=== PATIENT | female | born 1990 | race Caucasian/White ===

== ENCOUNTER → 2017-11-19 | Outpatient (CLI) | payer OTHER ==
--- NOTE | 2017-11-19 16:51 | Diagnostic Imaging Report ---
INDICATION: Right foot pain. AP, oblique, and lateral views of the right foot are obtained. There is mild plantar calcaneal spurring. There is no acute fracture or acute bony abnormality. Joint spaces are unremarkable. IMPRESSION: Negative right foot. Dictated by: Dictated on workstation # [id number]
--- NOTE | 2017-11-19 16:52 | Diagnostic Imaging Report ---
INDICATION: Injury to right ankle. AP, oblique, and lateral views of the right ankle are obtained. No fracture or acute bony abnormality is seen. IMPRESSION: Negative right ankle. Dictated by: Dictated on workstation # [id number]
== END ==
LOC: RAD 16:13
PROVIDERS: ATTEND Nurse Practitioner Family
DX: S93.401A Sprain of unspecified ligament of right ankle, initial encounter (principal)
CPT/HCPCS: 73610; 73630

== ENCOUNTER → 2017-11-23 | Outpatient (CLI) | payer OTHER ==
--- NOTE | 2017-11-23 15:21 | Diagnostic Imaging Report ---
INDICATION: Injury to the right foot with pain and swelling. TIME OF EXAM: 2:47 PM Three views of the right foot were obtained. FINDINGS: Metatarsals are intact. The phalanges are intact. Midfoot and hindfoot are unremarkable apart from a large plantar calcaneal spur. No fractures are seen. IMPRESSION: No acute bony abnormality is detected. Dictated by: Dictated on workstation # [id number]
== END ==
LOC: RAD 14:03
PROVIDERS: ATTEND Family Medicine
DX: S99.921A Unspecified injury of right foot, initial encounter (principal)
CPT/HCPCS: 73630

== ENCOUNTER 2018-01-10 23:00 | Emergency (ER) | payer OTHER ==
[~2018-01-10] VITALS: Ht 180.3 cm; Wt 113.4 kg
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
[2018-01-11] MEDS ORDERED: ORPHENADRINE 60 MG/2 ML (NORFLEX) AMP IM ONE (00:15)
[2018-01-11] MEDS ORDERED: PRD20T PO (00:15)
[2018-01-11] MEDS ORDERED: predniSONE 20 MG TAB PO ONE (00:15)
[2018-01-11 01:15] LABS: BASOPHILS % (AUTO) 0 % (0-10); EOSINOPHILS # (AUTO) 0.2 10^3/uL (0.0-0.3); EOSINOPHILS % (AUTO) 3 % (0-10); HEMATOCRIT 35 % (35-52); HEMOGLOBIN 12.5 G/DL (11.5-16.0); LYMPHOCYTES # (AUTO) 2.8 X 10^3 (1.0-4.0); LYMPHOCYTES % (AUTO) 33 % (12-44); MEAN CORPUSCULAR HEMOGLOBIN 32 PG (25-34); MEAN CORPUSCULAR HGB CONC 36 G/DL (32-36); MEAN CORPUSCULAR VOLUME 90 FL (80-99); MEAN PLATELET VOLUME 11.4 FL (7.4-10.4); MONOCYTES # (AUTO) 0.9 X 10^3 (0.0-1.0); MONOCYTES % (AUTO) 10 % (0-12); NEUTROPHILS # (AUTO) 4.6 X 10^3 (1.8-7.8); NEUTROPHILS % (AUTO) 54 % (42-75); PLATELET COUNT 201 10^3/uL (130-400); RED BLOOD COUNT 3.92 10^6/uL (4.35-5.85); WHITE BLOOD COUNT 8.5 10^3/uL (4.3-11.0)
[2018-01-11 01:35] LABS: ALANINE AMINOTRANSFERASE 22 U/L (0-55); ALKALINE PHOSPHATASE 101 U/L (40-136); BILIRUBIN,TOTAL 0.3 MG/DL (0.1-1.0); BUN/CREATININE RATIO 17; CALCIUM 9.6 MG/DL (8.5-10.1); CARBON DIOXIDE 25 MMOL/L (21-32); CHLORIDE 106 MMOL/L (98-107); CREATININE SERUM 0.88 MG/DL (0.60-1.30); GFR ESTIMATED > 60; GLUCOSE 109 MG/DL (70-105); POTASSIUM 4.1 MMOL/L (3.6-5.0); SODIUM 140 MMOL/L (135-145); TOTAL PROTEIN 6.7 GM/DL (6.4-8.2)
[2018-01-11 03:59] VITALS: BP 131/81
== END 2018-01-11 01:52 | disposition home or self-care (01) ==
LOC: EDUNIT# 23:00 → ER 23:01
DX: M54.9 Dorsalgia, unspecified (principal); R51 Headache; G25.81 Restless legs syndrome; Z87.59 Personal history of other complications of pregnancy, childbirth and the puerperium; Z97.5 Presence of (intrauterine) contraceptive device
CPT/HCPCS: 36415; 80053; 85025; 86141; 96372; 99284

== ENCOUNTER 2018-01-20 13:02 | Outpatient (RCR) | payer OTHER ==
[~2018-01-20 13:02] MED LIST: PRD20T PO
== END 2018-01-20 14:22 | disposition home or self-care (01) ==
PROVIDERS: ATTEND Family Medicine
DX: M54.5 Low back pain (principal); M25.551 Pain in right hip

== ENCOUNTER 2018-05-11 21:54 | Emergency (ER) | payer MEDICAID, OTHER ==
[~2018-05-11] VITALS: Ht 180.3 cm; Wt 122.5 kg
[2018-05-11] MEDS ORDERED: ONDANSETRON 4 MG (ZOFRAN) ORAL DISSOLVE TAB PO ONE (23:00)
[2018-05-11] MEDS ORDERED: ORPHENADRINE 60 MG/2 ML (NORFLEX) AMP IM ONE (23:00)
[2018-05-11] MEDS ORDERED: diphenhydrAMINE 50 MG/ML INJ (BENADRYL) IM ONE (23:00)
[2018-05-11] MEDS ORDERED: KETOROLAC 60 MG/2 ML VIAL IM ONE (23:00)
--- NOTE | 2018-05-11 23:11 | ED Headache ---
General Chief Complaint: Head/Cervical Problems Stated Complaint: MIGRANE Nursing Triage Note: PATIENT STATES THAT SHE HAS HAD A MIGRAINE FOR THE PAST TWO DAYS. SHE VISITED [facility] YESTERDAY AND RECEIVED ZOFRAN AND IMITREX, WHICH HAS HELPED A LITTLE. SHE COMPLAINS OF RINGING IN THE EARS, NAUSEA, BLURRY VISION. TEN DAYS AGO SHE PULLED A MUSCLE IN THE RIGHT SIDE OF HER NECK AND WAS GIVEN PREDNISONE AND FLEXERIL. Nursing Sepsis Screen: No Definite Risk Allergies and Home Medications Allergies Coded Allergies: No Known Drug Allergies (Unverified , 07/19/15) Home Medications Butalb/Acetaminophen/Caffeine 1 Each Capsule, 1-2 EACH PO Q6H PRN for HEADACHE Prescribed by: ELOY MENDOZA on 05/11/18 234 Methylprednisolone 4 Mg Tab.ds.pk, 4 MG PO UD Prescribed by: ELOY MENDOZA on 05/11/182345 Ondansetron 4 Mg Tab.rapdis, 4 MG PO Q4H Prescribed by: ELOY MENDOZA on 05/11/182345 Prednisone 20 Mg Tab, 40 MG PO DAILY Prescribed by: DESI ROJAS on 01/11/18 0015 Past Jcocgxz-Cclkvf-Rrtbkz Hx Patient Social History Recent Foreign Travel: No Contact w/Someone Who Travel: No Recent Infectious Disease Expo: No Recent Hopitalizations: No Immunizations Up To Date Date of Influenza Vaccine: Jul 17, 2015 Past Medical History Surgeries: Yes Section, Orthopedic Respiratory: No Cardiac: No Neurological: No : No Reproductive Disorders: No 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 0.0oz. 122.465034bi; BMI Method:Stated Progress/Results/Core Measures Results/Orders My Orders Orders - ELOY MENDOZA DO Ondansetron Oral Dissolve Tab (Zofran (05/11/18 23:00) Orphenadrine Injection (Norflex Injectio (05/11/18 23:00) Ketorolac Injection (Toradol Injection) (05/11/18 23:00) Diphenhydramine Injection (Benadryl Inje (05/11/18 23:00) Prednisone Tablet (Deltasone Tablet) (05/11/18 23:15) Medications Given in ED Current Medications Medications Dose Ordered Sig/Bobby Route Start Time Stop Time Status Last Admin Dose Admin Diphenhydramine HCl 50 mg ONCE ONCE IM 05/11/18 23:00 05/11/18 23:01 DC 05/11/18 23:38 50 MG Ketorolac Tromethamine 60 mg ONCE ONCE IM 05/11/18 23:00 05/11/18 23:01 DC 05/11/18 23:38 60 MG Ondansetron HCl 8 mg ONCE ONCE PO 05/11/18 23:00 05/11/18 23:01 DC 05/11/18 23:33 8 MG Orphenadrine Citrate 60 mg ONCE ONCE IM 05/11/18 23:00 05/11/18 23:01 DC 05/11/18 23:38 60 MG Prednisone 40 mg ONCE ONCE PO 05/11/18 23:15 05/11/18 23:16 DC 05/11/18 23:33 40 MG Vital Signs/I&O 05/11/18 22:28 Temp 98.6 Pulse 78 B/P (MAP) 118/61 (80) Pulse Ox 99 O2 Delivery Room Air Blood Pressure Mean: 80 Departure Impression Primary Impression: Tension type headache Additional Impressions: Cervical somatic dysfunction Chronic neck and back pain Disposition: HOME, SELF-CARE Condition: Stable Departure-Patient Inst. Referrals: ADIEL MADDEN MD (PCP/Family) Primary Care Physician Patient Instructions: Chronic Neck Pain (DC), Headache, Adult (DC), Tension Headache (DC), Migraine Headache (DC) Add. Discharge Instructions: ALTERNATE ICE AND HEAT TO NECK AT 20 MINUTE INTERVALS TAKE YOUR HOME MEDICATIONS PRESCRIBED, AND TAKE FLEXERIL 3 TIMES A DAY FOR MUSCLE SPASMS LOTS OF CLEAR LIQUIDS FOLLOW UP WITH YOUR DR IN 2-3 DAYS IF NO BETTER RETURN TO ER IF WORSE All discharge instructions reviewed with patient and/or family. Voiced understanding. Scripts Ondansetron (Zofran Odt) 4 Mg Tab.rapdis 4 MG PO Q4H for Nausea/Vomiting, #10 TAB Prov: ELOY MENDOZA Valarie ROSEN 05/11/18 Butalb/Acetaminophen/Caffeine (Esgic Capsule) 1 Each Capsule 1-2 EACH PO Q6H PRN for HEADACHE, #10 CAP Prov: ELOY MENDOZA DO 05/11/18 Methylprednisolone (Medrol) 4 Mg Tab.ds.pk 4 MG PO UD, #1 PKG Prov: ELOY MENDOZA DO 05/11/18 Work/School Note: Work Release Form Date Seen in the Emergency Department: May 11, 2018 Return to Work: May 12, 2018 Restrictions: No Restrictions ELOY MENDOZA DO May 11, 2018 23:11
[2018-05-11] MEDS ORDERED: predniSONE 20 MG TAB PO ONE (23:15)
[2018-05-11] MEDS ORDERED: BUTA1CAP45 PO (23:46)
[2018-05-11] MEDS ORDERED: ONDA4TAB8 PO (23:46)
[2018-05-11] MEDS ORDERED: METH4TAB PO (23:46)
[2018-05-12 00:55] VITALS: BP 134/78
== END 2018-05-12 01:05 | disposition home or self-care (01) ==
LOC: EDUNIT# 21:54 → ER 21:56
DX: G44.209 Tension-type headache, unspecified, not intractable (principal); M99.01 Segmental and somatic dysfunction of cervical region; G89.29 Other chronic pain; Z79.52 Long term (current) use of systemic steroids; Z87.59 Personal history of other complications of pregnancy, childbirth and the puerperium; Z97.5 Presence of (intrauterine) contraceptive device
CPT/HCPCS: 96372; 99284

== ENCOUNTER 2018-06-23 11:21 | Emergency (ER) | payer MEDICAID ==
[~2018-06-23] VITALS: Ht 180.3 cm; Wt 122.5 kg
[~2018-06-23 11:21] MED LIST changes: +BUTA1CAP45 PO; +METH4TAB PO; +ONDA4TAB8 PO
[2018-06-23] MEDS ORDERED: PROCHLORPERAZINE 10 MG/2ML INJ (COMPAZINE) IM ONE (12:00)
[2018-06-23] MEDS ORDERED: diphenhydrAMINE 50 MG/ML INJ (BENADRYL) IM ONE (12:00)
[2018-06-23] MEDS ORDERED: KETOROLAC 60 MG/2 ML VIAL IM ONE (12:00)
--- NOTE | 2018-06-23 12:04 | ED Headache ---
General Chief Complaint: Head/Cervical Problems Stated Complaint: MIGRAINE;BACK PAIN Source: patient Exam Limitations: no limitations History of Present Illness Date Seen by Provider: Jun 23, 2018 Time Seen by Provider: 12:00 Initial Comments To ER per private vehicle with reports of back pain and a migraine. She has lumbar back pain that radiates down the right leg. This is a chronic issue for her and she takes an anti-inflammatory daily and a muscle relaxer daily. She states that she has not had an MRI of her back done for this however. She denies fevers chills saddle anesthesia or loss of bowel or bladder control. She states that typically when her back pain gets bad she then develops a migraine which she has currently. She has associated nausea and photophobia. She denies dysuria or urinary frequency. Timing/Duration: increasing Severity/Quality: constant Location: global Prior Headaches/Recent Trauma: frequent headaches Modifying Factors: worse with exposure to light Associated Symptoms: No fever/chills; nausea/vomiting; No stiff neck Allergies and Home Medications Allergies Coded Allergies: No Known Drug Allergies (Unverified , 07/19/15) Home Medications Butalb/Acetaminophen/Caffeine 1 Each Capsule, 1-2 EACH PO Q6H PRN for HEADACHE Prescribed by: ELOY MENDOZA on 05/11/182345 Methylprednisolone 4 Mg Tab.ds.pk, 4 MG PO UD Prescribed by: ELOY MENDOZA on 05/11/18 234 Ondansetron 4 Mg Tab.rapdis, 4 MG PO Q4H Prescribed by: ELOY MENDOZA on 05/11/18 234 Prednisone 20 Mg Tab, 40 MG PO DAILY Prescribed by: DESI ROJAS on 01/11/18 0015 Patient Home Medication List Home Medication List Reviewed: Yes Review of Systems Review of Systems Constitutional: see HPI; No chills, No fever Eyes: No Symptoms Reported Ears, Nose, Mouth, Throat: no symptoms reported Respiratory: no symptoms reported Cardiovascular: no symptoms reported Genitourinary: no symptoms reported Musculoskeletal: see HPI; No neck pain Skin: no symptoms reported Psychiatric/Neurological: No Symptoms Reported, Headache Past Ddpmaze-Lrzxsk-Tldrnp Hx Patient Social History Alcohol Use: Denies Use Recreational Drug Use: No Smoking Status: Current Someday Smoker Type Used: Cigarettes 2nd Hand Smoke Exposure: Yes Recent Hopitalizations: No Physical Abuse: No Sexual Abuse: No Mistreated: No Fear: No Immunizations Up To Date Date of Influenza Vaccine: Jul 17, 2015 Seasonal Allergies Seasonal Allergies: No Past Medical History Surgeries: Yes (RIGHT ACL REPAIR X 2; LEFT KNEE SCOPE X 1; X 2) Section, Orthopedic Respiratory: No Cardiac: No Neurological: Yes (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 0.0oz. 122.965771ip; BMI Method:Stated General Appearance: WD/WN, no apparent distress HEENT: PERRL/EOMI, normal ENT inspection, TMs normal, pharynx normal Neck: non-tender, full range of motion Cardiovascular: regular rate, rhythm, no murmur Respiratory: normal breath sounds, no respiratory distress, no accessory muscle use Gastrointestinal: normal bowel sounds, non tender, soft Extremities: normal range of motion, non-tender Psychiatric: alert, oriented x 3 Crainal Nerves: normal hearing, normal speech, PERRL Skin: normal color, warm/dry, other (5 out of 5 strength with plantar flexion and dorsiflexion of each foot. Normal sensation) Progress/Results/Core Measures Results/Orders My Orders Orders - VERNON CURTIS APRN Ketorolac Injection (Toradol Injection) (06/23/18 12:00) Diphenhydramine Injection (Benadryl Inje (06/23/18 12:00) Prochlorperazine Injection (Compazine In (06/23/18 12:00) Medications Given in ED Current Medications Medications Dose Ordered Sig/Bobby Route Start Time Stop Time Status Last Admin Dose Admin Diphenhydramine HCl 25 mg ONCE ONCE IM 06/23/18 12:00 06/23/18 12:01 DC 06/23/18 12:20 25 MG Ketorolac Tromethamine 60 mg ONCE ONCE IM 06/23/18 12:00 06/23/18 12:01 DC 06/23/18 12:20 60 MG Prochlorperazine Edisylate 10 mg ONCE ONCE IM 06/23/18 12:00 06/23/18 12:01 DC 06/23/18 12:19 10 MG Vital Signs/I&O 06/23/18 11:47 Temp 98.2 Pulse 89 Resp 16 B/P (MAP) 130/84 (99) Pulse Ox 97 O2 Delivery Room Air Progress Progress Note : Progress Note 1251-Headache is still 610(unchanged) from arrival. States miller has helped with this in the past, she used to have some at home but does not have any left. Will dc to home with return precautions. Departure Impression Primary Impression: Lumbar radiculopathy Additional Impression: Headache Disposition: HOME, SELF-CARE Condition: Stable Admissions Decision to Admit Reason: Admit from ER (General) Departure-Patient Inst. Decision time for Depature: 12:03 Referrals: ADIEL MADDEN MD (PCP/Family) Primary Care Physician Patient Instructions: Radiculopathy (DC), Headache, Adult (DC) Add. Discharge Instructions: 1. Follow up with Dr Madden to schedule the MRI of the low back. Return to Er for any concerns All discharge instructions reviewed with patient and/or family. Voiced understanding. Scripts Butalb/Acetaminophen/Caffeine (Esgic 50-325-40 mg Tablet) 1 Each Tablet 1 EACH PO Q6H PRN for HEADACHE, #6 TAB Prov: VERNON CURTIS HUMAN RESOURCES OPERATIONS COORDINATOR 06/23/18 VERNON CURTIS HUMAN RESOURCES OPERATIONS COORDINATOR Jun 23, 2018 12:04
[2018-06-23] MEDS ORDERED: BUTA-249 PO (12:54)
[2018-06-23 13:06] VITALS: BP 105/51
== END 2018-06-23 13:08 | disposition home or self-care (01) ==
LOC: EDUNIT# 11:21 → ER 11:22
DX: M54.16 Radiculopathy, lumbar region (principal); R51 Headache; F17.210 Nicotine dependence, cigarettes, uncomplicated; Z98.890 Other specified postprocedural states; Z97.5 Presence of (intrauterine) contraceptive device; Z79.52 Long term (current) use of systemic steroids
CPT/HCPCS: 96372; 99284

== ENCOUNTER 2018-08-02 10:53 | Outpatient (RCR) | payer BC, MEDICAID ==
[~2018-08-02 10:53] MED LIST changes: +BUTA-249 PO
== END 2018-08-11 15:07 | disposition home or self-care (01) ==
PROVIDERS: ATTEND Internal Medicine
DX: M62.838 Other muscle spasm (principal)

== ENCOUNTER 2019-01-01 19:57 | Emergency (ER) | payer OTHER, BC, MEDICAID ==
[~2019-01-01] VITALS: Ht 167.6 cm; Wt 99.8 kg
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
[2019-01-01] MEDS ORDERED: RX-NAPROXEN (NAPROSYN) 250 MG TAB PPK#4 PO STA (21:19)
[2019-01-01] MEDS ORDERED: RX-MECLIZINE HCL (ANTIVERT) 25 MG TAB #4 PPK PO STA (21:19)
[2019-01-01] MEDS ORDERED: METH4TAB PO (21:25)
[2019-01-01] MEDS ORDERED: CEFD300C3 PO (21:25)
[2019-01-01] MEDS ORDERED: MECL-106 PO (21:25)
[2019-01-01] MEDS ORDERED: FLUT9.9S NS (21:25)
[2019-01-01] MEDS ORDERED: LORA1TAB59 PO (21:25)
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
[2019-01-01] MEDS ORDERED: CEFDINIR 300 MG (OMNICEF) CAP PO ONE (21:30)
[2019-01-01 21:35] VITALS: BP 140/67
== END 2019-01-01 21:36 | disposition home or self-care (01) ==
LOC: EDUNIT# 19:57 → ER 19:58
DX: S00.83XA Contusion of other part of head, initial encounter (principal); J32.4 Chronic pansinusitis; H66.91 Otitis media, unspecified, right ear; H70.91 Unspecified mastoiditis, right ear; G43.909 Migraine, unspecified, not intractable, without status migrainosus; D64.9 Anemia, unspecified; Z97.5 Presence of (intrauterine) contraceptive device; Z79.52 Long term (current) use of systemic steroids; Z77.22 Contact with and (suspected) exposure to environmental tobacco smoke (acute) (chronic); Z98.890 Other specified postprocedural states
CPT/HCPCS: 70450; 70486

== ENCOUNTER 2019-03-09 23:10 | Emergency (ER) | payer BC, MEDICAID, OTHER ==
[~2019-03-09] VITALS: Ht 177.8 cm; Wt 113.4 kg
[~2019-03-09 23:10] MED LIST changes: +CEFD300C3 PO; +FLUT9.9S NS; +LORA1TAB59 PO; +MECL-106 PO
[2019-03-09] MEDS ORDERED: RX-TRAMADOL 50 MG (ULTRAM) TAB PPK#4 PO STA (23:52)
[2019-03-09] MEDS ORDERED: RX-NAPROXEN (NAPROSYN) 250 MG TAB PPK#4 PO STA (23:52)
[2019-03-09] MEDS ORDERED: NAPR-915 PO (23:56)
[2019-03-09] MEDS ORDERED: TRAM-42 PO (23:56)
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
[2019-03-10 00:13] VITALS: BP 137/97
--- NOTE | 2019-03-10 07:12 | Diagnostic Imaging Report ---
EXAMINATION: Right hand radiographs, 3 views. COMPARISON: None. HISTORY: 28-year-old female, right hand pain after baseball hit hand. Swelling. FINDINGS: There is a sclerotic lesion in the distal radius most likely reflecting a benign bone island which measures 8mm in size. There is soft tissue swelling adjacent to the fifth metacarpal. There is no identified acute fracture. There is no identified subluxation or dislocation. IMPRESSION: 1. No identified acute bony abnormality of the right hand. Dictated by: Dictated on workstation # [id number]
== END 2019-03-10 00:13 | disposition home or self-care (01) ==
LOC: EDUNIT# 23:10 → ER 23:14
DX: S60.221A Contusion of right hand, initial encounter (principal); G43.909 Migraine, unspecified, not intractable, without status migrainosus; G62.9 Polyneuropathy, unspecified; D64.9 Anemia, unspecified; F17.210 Nicotine dependence, cigarettes, uncomplicated; Z98.890 Other specified postprocedural states; Z97.5 Presence of (intrauterine) contraceptive device; Z96.651 Presence of right artificial knee joint; Z79.51 Long term (current) use of inhaled steroids; Z79.52 Long term (current) use of systemic steroids; W21.11XA Struck by baseball bat, initial encounter; Y93.64 Activity, baseball
CPT/HCPCS: 73130

== ENCOUNTER 2019-04-17 08:28 | Emergency (ER) | payer MEDICAID ==
[~2019-04-17] VITALS: Ht 180.3 cm; Wt 113.4 kg
[~2019-04-17 08:28] MED LIST changes: +NAPR-915 PO; +TRAM-42 PO
[2019-04-17] MEDS ORDERED: LACTATED RINGERS 1,000 ML IV ONE (08:51)
[2019-04-17 08:59] LABS: BILIRUBIN,URINE NEGATIVE (NEGATIVE); CLARITY,URINE CLEAR; COLOR,URINE YELLOW; GLUCOSE, URINE (UA) NEGATIVE (NEGATIVE); KETONES,URINE NEGATIVE (NEGATIVE); LEUKOCYTE ESTERASE ,URINE 1+ (NEGATIVE); NITRITE,URINE NEGATIVE (NEGATIVE); PH,URINE 8 (5-9); PROTEIN,URINE NEGATIVE (NEGATIVE); UROBILINOGEN,URINE NORMAL (NORMAL)
[2019-04-17] MEDS ORDERED: ONDANSETRON 4 MG/2 ML (SDV) Z0FRAN IVP ONE (09:00)
[2019-04-17 09:14] LABS: BACTERIA,URINE TRACE /HPF
[2019-04-17 09:14] LABS: BASOPHILS % (AUTO) 0 % (0-10); EOSINOPHILS # (AUTO) 0.2 10^3/uL (0.0-0.3); EOSINOPHILS % (AUTO) 3 % (0-10); HEMATOCRIT 39 % (35-52); HEMOGLOBIN 13.5 G/DL (11.5-16.0); LYMPHOCYTES # (AUTO) 1.5 X 10^3 (1.0-4.0); LYMPHOCYTES % (AUTO) 23 % (12-44); MEAN CORPUSCULAR HEMOGLOBIN 31 PG (25-34); MEAN CORPUSCULAR HGB CONC 35 G/DL (32-36); MEAN CORPUSCULAR VOLUME 90 FL (80-99); MEAN PLATELET VOLUME 11.3 FL (7.4-10.4); MONOCYTES # (AUTO) 0.4 X 10^3 (0.0-1.0); MONOCYTES % (AUTO) 7 % (0-12); NEUTROPHILS # (AUTO) 4.2 X 10^3 (1.8-7.8); NEUTROPHILS % (AUTO) 67 % (42-75); PLATELET COUNT 222 10^3/uL (130-400); RED CELL DISTRIBUTION WIDTH 12.5 % (10.0-14.5); WHITE BLOOD COUNT 6.3 10^3/uL (4.3-11.0)
[2019-04-17 09:34] LABS: ALANINE AMINOTRANSFERASE 19 U/L (0-55); ALBUMIN 3.9 GM/DL (3.2-4.5); ALKALINE PHOSPHATASE 65 U/L (40-136); AMYLASE 42 U/L (25-125); BILIRUBIN,TOTAL 0.4 MG/DL (0.1-1.0); BUN/CREATININE RATIO 15; CALCIUM 9.1 MG/DL (8.5-10.1); CARBON DIOXIDE 23 MMOL/L (21-32); CHLORIDE 109 MMOL/L (98-107); CREATININE SERUM 0.79 MG/DL (0.60-1.30); GFR ESTIMATED > 60; GLUCOSE 100 MG/DL (70-105); LIPASE 22 U/L (8-78); POTASSIUM 3.9 MMOL/L (3.6-5.0); SODIUM 137 MMOL/L (135-145); TOTAL PROTEIN 6.2 GM/DL (6.4-8.2)
[2019-04-17] MEDS ORDERED: IOHEXOL 350 MG/ML 100 ML (OMNIPAQUE 350) VIAL IV ONE (09:45)
[2019-04-17] MEDS ORDERED: HOLD METFORMIN - RECEIVED CONTRAST 20 ML VIAL IV SCH (09:45)
[2019-04-17] MEDS ORDERED: NS 100 ML (IVPB) BAG IV ONE (09:45)
--- NOTE | 2019-04-17 10:16 | Diagnostic Imaging Report ---
PROCEDURE: CT abdomen and pelvis with contrast, rule out appendicitis. TECHNIQUE: Multiple contiguous axial images were obtained through the abdomen and pelvis after the administration of intravenous contrast. INDICATION: Right lower quadrant pain with nausea, vomiting and diarrhea symptoms 10 hours in duration. The appendix is well visualized and appeared unremarkable. No periappendiceal edema. There is no evidence for appendicitis. There is no hydroureteronephrosis, renal parenchyma showed normal enhancement and excretion of contrast media. The urinary bladder had a tiny amount of intraluminal air which may reflect instrumentation, correlate clinically. The bladder otherwise normal. The uterus is retroflexed with the IUD device in good position. There is a trace amount of pelvic free fluid at the cul-de-sac and noted as a common finding in a female patient of this age. There are few follicular cysts in the ovaries likely an involuting follicle on the left measured 1.7 cm. No suspicious adnexal lesion. There is no ileus or bowel obstruction. Liver, gallbladder, bile ducts, spleen, adrenals and pancreas all appeared unremarkable. The aorta is nonaneurysmal. No pneumatosis. No free gas. The osseous structures nonacute. The lung bases unremarkable. IMPRESSION: 1. Normal appendix, nonacute adnexa. IUD is in good position within a retroflexed uterus. There is trace free fluid in the pelvis, likely physiologic. No acute-appearing abnormality was identified. Dictated by: Dictated on workstation # [id number]
--- NOTE | 2019-04-17 10:24 | Diagnostic Imaging Report ---
INDICATION: Right lower quadrant pain, nausea, vomiting and diarrhea. Symptoms 10 hours in duration. FINDINGS: Contrast media is being excreted by the unobstructed renal collecting systems and accumulating within the midline urinary bladder. There is an IUD device present retroflexed. The bowel gas pattern is unremarkable. The lungs are clear. There is no failure, effusion or pneumothorax. IMPRESSION: No acute appearing abnormality. Dictated by: Dictated on workstation # [id number]
[2019-04-17] MEDS ORDERED: KETOROLAC 30 MG/ML VIAL IVP ONE (10:30)
--- NOTE | 2019-04-17 10:30 | ED Abdominal Pain ---
General Chief Complaint: Abdominal/GI Problems Stated Complaint: ABD PAIN;N/V/D Nursing Triage Note: PT AMB TO RM 6 WITH COMPLAINT OF ABD PAIN, N/V/D SINCE 1 AM. STATES PAIN IS IN THE RUQ AND RADIATES AROUND RIGHT SIDE. Sepsis Screen: No Definite Risk Source of Information: Patient Allergies and Home Medications Allergies Coded Allergies: No Known Drug Allergies (Unverified , 07/19/15) Home Medications Butalb/Acetaminophen/Caffeine 1 Each Capsule, 1-2 EACH PO Q6H PRN for HEADACHE Prescribed by: ELOY MENDOZA on 05/11/182345 Butalb/Acetaminophen/Caffeine 1 Each Tablet, 1 EACH PO Q6H PRN for HEADACHE Prescribed by: VERNON CURTIS on 06/23/18 1254 Cefdinir 300 Mg Capsule, 300 MG PO BID Prescribed by: ELOY MENDOZA on 01/01/192124 Fluticasone Propionate 9.9 Ml [place].susp, 2 SPRAYS NS BID Prescribed by: ELOY MENDOZA on 01/01/192124 Loratadine/Pseudoephedrine 1 Each Tab.er.12h, 1 EACH PO BID Prescribed by: ELOY MENDOZA on 01/01/192124 Meclizine HCl 25 Mg Tablet, 25-50 MG PO Q6H Prescribed by: ELOY MENDOZA on 01/01/192124 Methylprednisolone 4 Mg Tab.ds.pk, 4 MG PO UD Prescribed by: ELOY MENDOZA on 05/11/182345 Methylprednisolone 4 Mg Tab.ds.pk, 4 MG PO UD Prescribed by: ELOY MENDOZA on 01/01/192124 Naproxen 500 Mg Tablet, 500 MG PO BID Prescribed by: ELOY MENDOZA on 03/09/192355 Ondansetron 4 Mg Tab.rapdis, 4 MG PO Q4H Prescribed by: ELOY MENDOZA on 05/11/182345 Prednisone 20 Mg Tab, 40 MG PO DAILY Prescribed by: DESI ROJAS on 01/11/1814 Tramadol HCl 50 Mg Tablet, 50 MG PO Q4H PRN for PAIN-MODERATE Prescribed by: ELOY MENDOZA on 03/09/192355 Past Dseqrob-Eleaai-Dyygax Hx Patient Social History Alcohol Use: Denies Use Recreational Drug Use: No Smoking Status: Current Everyday Smoker Type Used: Cigarettes 2nd Hand Smoke Exposure: Yes Recent Foreign Travel: No Contact w/Someone Who Travel: No Recent Infectious Disease Expo: No Recent Hopitalizations: No Immunizations Up To Date Tetanus Booster (TDap): Unknown PED Vaccines UTD: Yes Date of Influenza Vaccine: Jul 17, 2015 Seasonal Allergies Seasonal Allergies: No Past Medical History Surgeries: Yes (RIGHT ACL REPAIR X 2; LEFT KNEE SCOPE X 1; X 2) Section, Orthopedic Respiratory: No Cardiac: No Neurological: Yes Headaches /Migraines, Neuropathy 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 0.0oz. 113.651361mh; 34.86 BMI Method:Stated Progress/Results/Core Measures Results/Orders Lab Results Laboratory Tests Test 04/17/19 08:50 04/17/19 09:08 Range/Units Urine Color YELLOW Urine Clarity CLEAR Urine pH 8 5-9 Urine Specific [place] 1.010 L 1.016-1.022 Urine Protein NEGATIVE NEGATIVE Urine Glucose (UA) NEGATIVE NEGATIVE Urine Ketones NEGATIVE NEGATIVE Urine Nitrite NEGATIVE NEGATIVE Urine Bilirubin NEGATIVE NEGATIVE Urine Urobilinogen NORMAL NORMAL MG/DL Urine Leukocyte Esterase 1+ H NEGATIVE Urine RBC (Auto) NEGATIVE NEGATIVE Urine RBC NONE /HPF Urine WBC 2-5 /HPF Urine Squamous Epithelial Cells 10-25 H /HPF Urine Crystals NONE /LPF Urine Bacteria TRACE /HPF Urine Casts NONE /LPF Urine Mucus NEGATIVE /LPF Urine Culture Indicated YES White Blood Count 6.3 4.3-11.0 10^3/uL Red Blood Count 4.36 4.35-5.85 10^6/uL Hemoglobin 13.5 11.5-16.0 G/DL Hematocrit 39 35-52 % Mean Corpuscular Volume 90 80-99 FL Mean Corpuscular Hemoglobin 31 25-34 PG Mean Corpuscular Hemoglobin Concent 35 32-36 G/DL Red Cell Distribution Width 12.5 10.0-14.5 % Platelet Count 222 130-400 10^3/uL Mean Platelet Volume 11.3 H 7.4-10.4 FL Neutrophils (%) (Auto) 67 42-75 % Lymphocytes (%) (Auto) 23 12-44 % Monocytes (%) (Auto) 7 0-12 % Eosinophils (%) (Auto) 3 0-10 % Basophils (%) (Auto) 0 0-10 % Neutrophils # (Auto) 4.2 1.8-7.8 X 10^3 Lymphocytes # (Auto) 1.5 1.0-4.0 X 10^3 Monocytes # (Auto) 0.4 0.0-1.0 X 10^3 Eosinophils # (Auto) 0.2 0.0-0.3 10^3/uL Basophils # (Auto) 0.0 0.0-0.1 10^3/uL Sodium Level 137 135-145 MMOL/L Potassium Level 3.9 3.6-5.0 MMOL/L Chloride Level 109 H 98-107 MMOL/L Carbon Dioxide Level 23 21-32 MMOL/L Anion Gap 5 5-14 MMOL/L Blood Urea Nitrogen 12 7-18 MG/DL Creatinine 0.79 0.60-1.30 MG/DL Estimat Glomerular Filtration Rate > 60 BUN/Creatinine Ratio 15 Glucose Level 100 70-105 MG/DL Calcium Level 9.1 8.5-10.1 MG/DL Corrected Calcium 9.2 8.5-10.1 MG/DL Total Bilirubin 0.4 0.1-1.0 MG/DL Aspartate Amino Transf (AST/SGOT) 16 5-34 U/L Alanine Aminotransferase (ALT/SGPT) 19 0-55 U/L Alkaline Phosphatase 65 40-136 U/L Total Protein 6.2 L 6.4-8.2 GM/DL Albumin 3.9 3.2-4.5 GM/DL Amylase Level 42 25-125 U/L Lipase 22 8-78 U/L My Orders Orders - ELOY MENDOZA DO Ed Iv/Invasive Line Start (04/17/19 08:51) Urine Bedside (04/17/19 08:51) Amylase (04/17/19 08:51) Cbc With Automated Diff (04/17/19 08:51) Comprehensive Metabolic Panel (04/17/19 08:51) Lipase (04/17/19 08:51) Ua Culture If Indicated (04/17/19 08:51) Ed Iv/Invasive Line Start (04/17/19 08:51) Lactated Ringers (Lr 1000 Ml Iv Solution (04/17/19 08:51) Ondansetron Injection (Zofran Injectio (04/17/19 09:00) Urine Culture (04/17/19 08:50) Ct Abd/Pelv W (Appendicitis) (04/17/19 09:16) Acute Abd Series (04/17/19 09:16) Iohexol Injection (Omnipaque 350 Mg/Ml 1 (04/17/19 09:45) Received Contrast (Hold Metformin- Contr (04/17/19 09:45) Ns (Ivpb) (Sodium Chloride 0.9% Ivpb Bag (04/17/19 09:45) Ketorolac Injection (Toradol Injection) (04/17/19 10:30) Us Abdomen Complete 62390 (04/17/19 10:32) Medications Given in ED Current Medications Medications Dose Ordered Sig/Bobby Route Start Time Stop Time Status Last Admin Dose Admin Iohexol 100 ml ONCE ONCE IV 04/17/19 09:45 04/17/19 09:56 DC 04/17/19 10:01 100 ML Ketorolac Tromethamine 30 mg ONCE ONCE IVP 04/17/19 10:30 04/17/19 10:38 DC 04/17/19 11:40 30 MG Lactated Ringer's 1,000 ml @ 0 mls/hr Q0M ONCE IV 04/17/19 08:51 04/17/19 08:53 DC 04/17/19 09:08 1,000 MLS/HR Ondansetron HCl 4 mg ONCE ONCE IVP 04/17/19 09:00 04/17/19 09:01 DC 04/17/19 09:08 4 MG Sodium Chloride 100 ml ONCE ONCE IV 04/17/19 09:45 04/17/19 09:56 DC 04/17/19 10:01 100 ML Vital Signs/I&O 04/17/19 08:40 Temp 96.6 Pulse 72 Resp 17 B/P (MAP) 114/73 (87) Pulse Ox 97 O2 Delivery Room Air Blood Pressure Mean: [address] ABDOMEN/PELVIS--NO ACUTE PROCESS, PER RADIOLOGIST REPORT AT 1029 ABDOMEN XRAYS--NO ACUTE PROCESS, PER RADIOLOGIST REPORT AT 1029 ABDOMINAL ULTRASOUND--NO ACUTE PROCESS, PER RADIOLOGIST REPORT AT 1150 Reviewed: Reviewed by Me Departure Impression Primary Impression: Abdominal pain Disposition: HOME, SELF-CARE Condition: Improved Departure-Patient Inst. Referrals: [facility] (PCP/Family) Primary Care Physician Patient Instructions: Acute Abdomen (Belly Pain), Adult (DC) Add. Discharge Instructions: CLEAR LIQUIDS--WATER, BROTH, JELLO, GATORADE TOMORROW IF YOU ARE BETTER, ADD BRATS DIET TO CLEAR LIQUIDS--BANANAS, RICE, APPLESAUCE, TOAST, SALTINES FOLLOW UP WITH YOUR DR IN 2-3 DAYS IF NO BETTER, RETURN TO ER IF WORSE All discharge instructions reviewed with patient and/or family. Voiced understanding. Scripts Dicyclomine HCl (Dicyclomine HCl) 20 Mg Tablet 20 MG PO Q6H for Abdominal Pain, #20 TAB Prov: ELOY MENDOZA DO 04/17/19 Hyoscyamine Sulfate (Levsin-Sl) 0.125 Mg Tab.subl 1-2 TAB SL Q4H for Abdominal Pain, #15 TAB Prov: ELOY MENDOZA DO 04/17/19 Pantoprazole Sodium (Protonix) 40 Mg Tablet.dr 40 MG PO DAILY, #15 TAB Prov: ELOY MENDOZA DO 04/17/19 Ondansetron (Ondansetron Odt) 8 Mg Tab.rapdis 8 MG PO Q6H for Nausea/Vomiting, #10 TAB Prov: ELOY MENDOZA DO 04/17/19 ELOY MENDOZA DO Apr 17, 2019 10:30
--- NOTE | 2019-04-17 11:31 | Diagnostic Imaging Report ---
PROCEDURE: US abdomen complete. TECHNIQUE: Multiple real-time grayscale images were obtained over the abdomen in various projections. INDICATION: Abdominal pain with nausea, vomiting and diarrhea. Liver is normal in size at 16.5 cm. The portal vein is patent and shows normal direction of flow. No discrete liver mass is identified. The gallbladder is without stones or sludge. No wall thickening or biliary duct dilatation is seen. Visualized pancreas is unremarkable. Spleen is normal in size 11.3 cm. Aorta is somewhat obscured by bowel gas. IVC is patent. Right and left kidneys are without calculi or hydronephrosis. There is no ascites. IMPRESSION: Unremarkable abdominal ultrasound. Dictated by: Dictated on workstation # [id number]
[2019-04-17] MEDS ORDERED: DICY20TA10 PO (11:55)
[2019-04-17] MEDS ORDERED: PANT40TA2 PO (11:55)
[2019-04-17] MEDS ORDERED: HYOS0.1283 SL (11:55)
[2019-04-17] MEDS ORDERED: ONDA8TAB13 PO (11:55)
[2019-04-17 13:12] VITALS: BP 115/76
== END 2019-04-17 13:12 | disposition home or self-care (01) ==
LOC: EDUNIT# 08:28 → ER 08:29
DX: R10.11 Right upper quadrant pain (principal); G43.909 Migraine, unspecified, not intractable, without status migrainosus; G62.9 Polyneuropathy, unspecified; F17.210 Nicotine dependence, cigarettes, uncomplicated; Z79.51 Long term (current) use of inhaled steroids
CPT/HCPCS: 36415; 74022; 74177; 76700; 80053; 81000; 82150; 83690; 84703; 85025; 87088; 96361; 96374; 96375

== ENCOUNTER 2019-05-09 21:06 | Emergency (ER) | payer MEDICAID ==
[~2019-05-09] VITALS: Ht 180.3 cm; Wt 113.4 kg
[~2019-05-09 21:06] MED LIST changes: +DICY20TA10 PO; +HYOS0.1283 SL; +ONDA8TAB13 PO; +PANT40TA2 PO
--- NOTE | 2019-05-09 21:31 | ED Syncope ---
General Stated Complaint: POSSIBLE SEIZURE Source of Information: Patient Exam Limitations: No Limitations History of Present Illness Date Seen by Provider: May 09, 2019 Time Seen by Provider: 21:10 Initial Comments Patient presents to ER by private conveyance with chief complaint that at 9:00 this morning she was not feeling well and felt hot and nauseated so she got up to go to the kitchen to the refrigerator and estimated there she started to fall forward nearly passing out and struck her forehead against the bathroom and then landed on the ground. She did vomit as well as wet herself and said she felt v reg shaky and thought that maybe she had a seizure. She has no history of seizures. She doesn't member the entire event. She has no history of syncopal episodes, chest pain, abdominal pain, diarrhea. She was here a week ago with abdominal discomfort and diarrhea and was diagnosed with a viral gastroenteritis. She works at [employer] and is exposed to multiple sick people. She denies any fevers or chills but she has not checked her temperature. She has a Mirena in history of 2 C-sections and 3 knee repairs. She used to play softball basketball etc. 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 She does not feel that she's been drinking enough water recently. The patient was prescribed Claritin-D over a month ago but she says she's not used the last 2-3 weeks. The patient also had a history in the last month of mastoiditis and was treated successfully with antibiotics. She's no longer having any pain, or other symptoms with her ears. Loss of Consciousness: No Loss of Consciousness, Brief (Seconds) Current Symptoms: Back to Normal Allergies and Home Medications Allergies Coded Allergies: No Known Drug Allergies (Unverified , 07/19/15) Home Medications Butalb/Acetaminophen/Caffeine 1 Each Capsule, 1-2 EACH PO Q6H PRN for HEADACHE Prescribed by: ELOY MENDOZA on 05/11/18 2346 Butalb/Acetaminophen/Caffeine 1 Each Tablet, 1 EACH PO Q6H PRN for HEADACHE Prescribed by: VERNON CURTIS on 06/23/18 1254 Cefdinir 300 Mg Capsule, 300 MG PO BID Prescribed by: ELOY MENDOZA on 01/01/195 Dicyclomine HCl 20 Mg Tablet, 20 MG PO Q6H Prescribed by: ELOY MENDOZA on 04/17/191154 Fluticasone Propionate 9.9 Ml [place].susp, 2 SPRAYS NS BID Prescribed by: ELOY MENDOZA on 01/01/192124 Hyoscyamine Sulfate 0.125 Mg Tab.subl, 1-2 TAB SL Q4H Prescribed by: ELOY MENDOZA on 04/17/191154 Loratadine/Pseudoephedrine 1 Each Tab.er.12h, 1 EACH PO BID Prescribed by: ELOY MENDOZA on 01/01/192124 Meclizine HCl 25 Mg Tablet, 25-50 MG PO Q6H Prescribed by: ELOY MENDOZA on 01/01/192124 Methylprednisolone 4 Mg Tab.ds.pk, 4 MG PO UD Prescribed by: ELOY MENDOZA on 05/11/182345 Methylprednisolone 4 Mg Tab.ds.pk, 4 MG PO UD Prescribed by: ELOY MENDOZA on 01/01/192124 Naproxen 500 Mg Tablet, 500 MG PO BID Prescribed by: ELOY MENDOZA on 03/09/192355 Ondansetron 4 Mg Tab.rapdis, 4 MG PO Q4H Prescribed by: ELOY MENDOZA on 05/11/182345 Ondansetron 8 Mg Tab.rapdis, 8 MG PO Q6H Prescribed by: ELOY MENDOZA on 04/17/191154 Pantoprazole Sodium 40 Mg Tablet.dr, 40 MG PO DAILY Prescribed by: ELOY MENDOZA on 04/17/191154 Prednisone 20 Mg Tab, 40 MG PO DAILY Prescribed by: DESI ROJAS on 01/11/18 0015 Tramadol HCl 50 Mg Tablet, 50 MG PO Q4H PRN for PAIN-MODERATE Prescribed by: ELOY MENDOZA on 03/09/192355 Patient Home Medication List Home Medication List Reviewed: Yes Review of Systems Constitutional: No chills, No diaphoresis EENTM: No ear discharge, No hearing loss Respiratory: No cough, No short of breath Cardiovascular: No edema, No Hx of Intervention Genitourinary: No discharge, No dysuria : No Musculoskeletal: No back pain, No joint pain Past Destypl-Sriosd-Jnmeeq Hx Patient Social History Smoking Status: Current Everyday Smoker Type Used: Cigarettes 2nd Hand Smoke Exposure: Yes Recent Foreign Travel: No Contact w/Someone Who Travel: No Recent Hopitalizations: No Immunizations Up To Date Tetanus Booster (TDap): Unknown PED Vaccines UTD: Yes Date of Influenza Vaccine: Jul 17, 2015 Seasonal Allergies Seasonal Allergies: No Past Medical History Surgeries: Yes (RIGHT ACL REPAIR X 2; LEFT KNEE SCOPE X 1; X 2) Section, Orthopedic Respiratory: No Cardiac: No Neurological: Yes Headaches /Migraines, Neuropathy Reproductive Disorders: No 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 0.0oz. 113.203151er; 34.86 BMI Method:Stated General Appearance: No Apparent Distress, WD/WN HEENT: PERRL/EOMI, TMs Normal (clear effusion on the left TM without loss of landmarks of the tympanic membrane, erythema, injection, bulging or tenderness on examination), Pharynx Normal (dry oral mucosa); No Moist Mucous Membranes Neck: Full Range of Motion, Normal Inspection Cardiovascular: Regular Rate, Rhythm, No Edema, Normal Peripheral Pulses Respiratory: Chest Non Tender, Lungs Clear, Normal Breath Sounds, No Accessory Muscle Use, No Respiratory Distress Gastrointestinal: Normal Bowel Sounds, No Organomegaly Back: Normal Inspection, No CVA Tenderness Extremities: Normal Capillary Refill, Normal Inspection, Normal Range of Motion, No Pedal Edema Neurologic/Psychiatric: Alert, Oriented x3, No Motor/Sensory Deficits, Normal Mood/Affect, claim examiner II-XII Norm as Tested Cranial Nerves: Normal Hearing, Normal Speech, PERRL Coordination/Gait: Normal Gait Motor/Sensory: No Motor Deficit, No Sensory Deficit Skin: Normal Color, Warm/Dry Progress/Results/Core Measures Results/Orders Lab Results Laboratory Tests Test 05/09/19 21:28 05/09/19 21:41 Range/Units White Blood Count 8.2 4.3-11.0 10^3/uL Red Blood Count 4.25 L 4.35-5.85 10^6/uL Hemoglobin 13.3 11.5-16.0 G/DL Hematocrit 39 35-52 % Mean Corpuscular Volume 91 80-99 FL Mean Corpuscular Hemoglobin 31 25-34 PG Mean Corpuscular Hemoglobin Concent 35 32-36 G/DL Red Cell Distribution Width 12.2 10.0-14.5 % Platelet Count 222 130-400 10^3/uL Mean Platelet Volume 11.4 H 7.4-10.4 FL Neutrophils (%) (Auto) 55 42-75 % Lymphocytes (%) (Auto) 33 12-44 % Monocytes (%) (Auto) 9 0-12 % Eosinophils (%) (Auto) 3 0-10 % Basophils (%) (Auto) 0 0-10 % Neutrophils # (Auto) 4.5 1.8-7.8 X 10^3 Lymphocytes # (Auto) 2.7 1.0-4.0 X 10^3 Monocytes # (Auto) 0.7 0.0-1.0 X 10^3 Eosinophils # (Auto) 0.2 0.0-0.3 10^3/uL Basophils # (Auto) 0.0 0.0-0.1 10^3/uL Sodium Level 141 135-145 MMOL/L Potassium Level 3.6 3.6-5.0 MMOL/L Chloride Level 109 H 98-107 MMOL/L Carbon Dioxide Level 20 L 21-32 MMOL/L Anion Gap 12 5-14 MMOL/L Blood Urea Nitrogen 18 7-18 MG/DL Creatinine 0.91 0.60-1.30 MG/DL Estimat Glomerular Filtration Rate > 60 BUN/Creatinine Ratio 20 Glucose Level 116 H 70-105 MG/DL Calcium Level 9.1 8.5-10.1 MG/DL Corrected Calcium 9.1 8.5-10.1 MG/DL Magnesium Level 2.0 1.8-2.4 MG/DL Total Bilirubin 0.2 0.1-1.0 MG/DL Aspartate Amino Transf (AST/SGOT) 14 5-34 U/L Alanine Aminotransferase (ALT/SGPT) 21 0-55 U/L Alkaline Phosphatase 91 40-136 U/L Troponin I < 0.028 <0.028 NG/ML C-Reactive Protein High Sensitivity 0.16 0.00-0.50 MG/DL B-Type Natriuretic Peptide < 10.0 <100.0 PG/ML Total Protein 6.2 L 6.4-8.2 GM/DL Albumin 4.0 3.2-4.5 GM/DL Thyroid Stimulating Hormone (TSH) 0.74 0.35-4.94 UIU/ML Urine Color YELLOW Urine Clarity CLEAR Urine pH 5 5-9 Urine Specific [place] 1.030 H 1.016-1.022 Urine Protein NEGATIVE NEGATIVE Urine Glucose (UA) NEGATIVE NEGATIVE Urine Ketones NEGATIVE NEGATIVE Urine Nitrite NEGATIVE NEGATIVE Urine Bilirubin NEGATIVE NEGATIVE Urine Urobilinogen NORMAL NORMAL MG/DL Urine Leukocyte Esterase 1+ H NEGATIVE Urine RBC (Auto) NEGATIVE NEGATIVE Urine RBC NONE /HPF Urine WBC 2-5 /HPF Urine Squamous Epithelial Cells 10-25 H /HPF Urine Crystals NONE /LPF Urine Bacteria TRACE /HPF Urine Casts NONE /LPF Urine Mucus SMALL H /LPF Urine Culture Indicated NO Urine Test NEGATIVE NEGATIVE Urine Opiates Screen NEGATIVE NEGATIVE Urine Oxycodone Screen NEGATIVE NEGATIVE Urine Methadone Screen NEGATIVE NEGATIVE Urine Propoxyphene Screen NEGATIVE NEGATIVE Urine Barbiturates Screen NEGATIVE NEGATIVE Ur Tricyclic Antidepressants Screen NEGATIVE NEGATIVE Urine Phencyclidine Screen NEGATIVE NEGATIVE Urine Amphetamines Screen NEGATIVE NEGATIVE Urine Methamphetamines Screen NEGATIVE NEGATIVE Urine Benzodiazepines Screen NEGATIVE NEGATIVE Urine Cocaine Screen NEGATIVE NEGATIVE Urine Cannabinoids Screen POSITIVE H NEGATIVE My Orders Orders - DESI ROJAS BNP (05/09/19 21:21) Cbc With Automated Diff (05/09/19 21:21) Comprehensive Metabolic Panel (05/09/19 21:21) Hs C Reactive Protein (05/09/19 21:21) Drug Screen Stat (Urine) (05/09/19 21:21) Magnesium (05/09/19 21:21) Thyroid Stimulating Hormone (05/09/19 21:21) Troponin I (05/09/19 21:21) Ua Culture If Indicated (05/09/19 21:21) Chest 1 View, Ap/Pa Only (05/09/19 21:21) Orthostatic Vital Signs (Adult (05/09/19 21:21) Ekg Tracing (05/09/19 21:21) Continuous Ekg Monitoring (05/09/19 21:21) Hcg,Qualitative Urine (05/09/19 21:49) Vital Signs/I&O 05/09/19 05/09/19 21:31 21:42 Temp 97.6 Pulse 78 70 67 85 Resp 18 B/P (MAP) 115/67 (83) 125/64 (84) 114/66 (82) 107/73 (84) Pulse Ox 99 O2 Delivery Room Air Progress Progress Note #1: Time: 21:34 Progress Note EKG, orthostatics, lab. Dehydration would be very likely as well as infection. She does appear clinically to be dry. Urinalysis, urine drug screen. HCG despite Mirena. Orthostatics are nearly positive. Plan to push oral rehydration. Progress Note #2: Time: 22:32 Progress Note [place] syncope score of -3 points. Very low risk. 0.4% risk of 30-day serious adverse event. Initial ECG Impression Date: May 09, 2019 Initial ECG Impression Time: 21:31 Initial ECG Rate: 67 Initial ECG Rhythm: Normal Sinus Initial ECG Intervals: Normal Initial ECG Impression: Normal, Nonspecific Changes Initial ECG Comparisson: No Previous ECG Available Comment Normal sinus rhythm without ST elevation or depression. Diagnostic Imaging Diagonstic Imaging: Xray Plain Films/CT/US/NM/MRI: chest (1v) Comments No acute cardiopulmonary process noted. Reviewed: Reviewed by Me Departure Impression Primary Impression: Vasovagal near syncope Disposition: 01 HOME, SELF-CARE Condition: Stable Departure-Patient Inst. Decision time for Depature: 22:36 Referrals: [facility] [place] ([place]) Primary Care Physician Patient Instructions: Near Fainting (DC) Add. Discharge Instructions: Drink plenty of fluids especially sports drinks or water. Follow-up the next 1-2 weeks with your primary care doctor for further evaluation and management. Discontinue the use of caffeine, energy drinks, coffee, medications with pseudoephedrine. Return to the ER if you begin to experience chest pain, shortness of breath or other worrisome symptoms. Work/School Note: Work Release Form Date Seen in the Emergency Department: May 09, 2019 Return to Work: May 10, 2019 Restrictions: No Restrictions DESI ROJAS May 09, 2019 21:31
[2019-05-09 21:34] LABS: BASOPHILS % (AUTO) 0 % (0-10); EOSINOPHILS # (AUTO) 0.2 10^3/uL (0.0-0.3); EOSINOPHILS % (AUTO) 3 % (0-10); HEMATOCRIT 39 % (35-52); HEMOGLOBIN 13.3 G/DL (11.5-16.0); LYMPHOCYTES # (AUTO) 2.7 X 10^3 (1.0-4.0); LYMPHOCYTES % (AUTO) 33 % (12-44); MEAN CORPUSCULAR HEMOGLOBIN 31 PG (25-34); MEAN CORPUSCULAR HGB CONC 35 G/DL (32-36); MEAN CORPUSCULAR VOLUME 91 FL (80-99); MEAN PLATELET VOLUME 11.4 FL (7.4-10.4); MONOCYTES # (AUTO) 0.7 X 10^3 (0.0-1.0); MONOCYTES % (AUTO) 9 % (0-12); NEUTROPHILS # (AUTO) 4.5 X 10^3 (1.8-7.8); NEUTROPHILS % (AUTO) 55 % (42-75); PLATELET COUNT 222 10^3/uL (130-400); RED CELL DISTRIBUTION WIDTH 12.2 % (10.0-14.5); WHITE BLOOD COUNT 8.2 10^3/uL (4.3-11.0)
[2019-05-09 21:42] VITALS: BP_SYST 107; BP_SYST 114; BP_SYST 125; BP_DIAS 64; BP_DIAS 66; BP_DIAS 73
[2019-05-09 21:54] LABS: BILIRUBIN,URINE NEGATIVE (NEGATIVE); CLARITY,URINE CLEAR; COLOR,URINE YELLOW; GLUCOSE, URINE (UA) NEGATIVE (NEGATIVE); KETONES,URINE NEGATIVE (NEGATIVE); LEUKOCYTE ESTERASE ,URINE 1+ (NEGATIVE); NITRITE,URINE NEGATIVE (NEGATIVE); PH,URINE 5 (5-9); PROTEIN,URINE NEGATIVE (NEGATIVE); UROBILINOGEN,URINE NORMAL (NORMAL)
[2019-05-09 21:54] LABS: ALANINE AMINOTRANSFERASE 21 U/L (0-55); ALKALINE PHOSPHATASE 91 U/L (40-136); BILIRUBIN,TOTAL 0.2 MG/DL (0.1-1.0); BUN/CREATININE RATIO 20; CALCIUM 9.1 MG/DL (8.5-10.1); CARBON DIOXIDE 20 MMOL/L (21-32); CHLORIDE 109 MMOL/L (98-107); CREATININE SERUM 0.91 MG/DL (0.60-1.30); GFR ESTIMATED > 60; GLUCOSE 116 MG/DL (70-105); POTASSIUM 3.6 MMOL/L (3.6-5.0); SODIUM 141 MMOL/L (135-145); TOTAL PROTEIN 6.2 GM/DL (6.4-8.2)
[2019-05-09 22:00] LABS: BACTERIA,URINE TRACE /HPF
[2019-05-09 22:05] LABS: AMPHETAMINE SCREEN, URINE NEGATIVE (NEGATIVE); BARBITURATE SCREEN URINE NEGATIVE (NEGATIVE); BENZODIAZEPINES SCREEN URINE NEGATIVE (NEGATIVE); CANNABINOID SCREEN, URINE POSITIVE (NEGATIVE); COCAINE SCREEN URINE NEGATIVE (NEGATIVE); METHADONE STAT NEGATIVE (NEGATIVE); METHAMPHETAMINE SCREEN URINE S NEGATIVE (NEGATIVE); OPIATE SCREEN URINE NEGATIVE (NEGATIVE); OXYCODONE STAT NEGATIVE (NEGATIVE); PROPOXYPHENE STAT NEGATIVE (NEGATIVE); TRICYCLIC ANTIDEPRESSANTS SCRE NEGATIVE (NEGATIVE)
[2019-05-09 22:57] VITALS: BP 107/73
--- NOTE | 2019-05-10 07:44 | Diagnostic Imaging Report ---
INDICATION: Dizziness FINDINGS: Frontal view of the chest demonstrate the lungs to be clear. The heart, mediastinum, pulmonary vascularity and visualized bony thorax are normal. IMPRESSION: Normal chest. Dictated by: Dictated on workstation # [id number]
== END 2019-05-09 22:57 | disposition home or self-care (01) ==
LOC: EDUNIT# 21:06 → ER 21:07
DX: R55 Syncope and collapse (principal); G43.909 Migraine, unspecified, not intractable, without status migrainosus; G62.9 Polyneuropathy, unspecified; F17.210 Nicotine dependence, cigarettes, uncomplicated; Z79.51 Long term (current) use of inhaled steroids; Z79.52 Long term (current) use of systemic steroids
CPT/HCPCS: 36415; 71045; 80053; 80306; 81000; 83735; 83880; 84443; 84484; 84703; 85025; 86141; 93005